=== PATIENT | male | born 1975 | race Hispanic/Latino ===

== ENCOUNTER 2017-06-20 15:54 | Emergency (ER) | payer SELFPAY ==
[~2017-06-20] VITALS: Ht 170.2 cm; Wt 65.0 kg
[~2017-06-20 15:54] MED LIST: ALBUTEROL S2.5 MG/.5 IN; BENADRYL 50MG C50 MG PO; CEPHALEXIN500 MG PO; MEDDOSEPAK PO; NO; PROAIR HFA IN; ULTRAM50 MG PO; VENTOLIN HFA IN; ZPAK PO
[2017-06-20 17:43] LABS: INFLUENZA A POSITIVE (NONE DETECT); INFLUENZA B NONE DETECTED (NONE DETECT)
[2017-06-20 17:54] VITALS: BP 125/69
[2017-06-20] MEDS ORDERED: TAM75CAP PO (18:28)
== END 2017-06-20 19:05 | disposition home or self-care (01) | DRG 153 ==
LOC: ED 15:54
PROVIDERS: Emergency Medicine
DX: J11.1 Influenza due to unidentified influenza virus with other respiratory manifestations (principal); F17.210 Nicotine dependence, cigarettes, uncomplicated; R05 Cough; R09.81 Nasal congestion; R50.9 Fever, unspecified

== ENCOUNTER 2022-06-01 06:51 | Emergency (ER) | payer OTHER ==
[~2022-06-01] VITALS: Ht 170.2 cm; Wt 79.8 kg
[~2022-06-01 06:51] MED LIST changes: +TAM75CAP PO
[2022-06-01] MEDS ORDERED: CEPHALEXIN500 M1 PO (07:12)
[2022-06-01] MEDS ORDERED: BACTRIM DS1 TAB PO (07:12)
[2022-06-01 07:53] VITALS: BP 116/59
== END 2022-06-01 07:54 | disposition home or self-care (01) | DRG 603 ==
LOC: ED 06:51
DX: L03.116 Cellulitis of left lower limb (principal)

== ENCOUNTER 2022-12-07 11:26 | Emergency (ER) | payer OTHER ==
[~2022-12-07] VITALS: Ht 167.6 cm; Wt 54.5 kg
[~2022-12-07 11:26] MED LIST changes: +BACTRIM DS1 TAB PO; +CEPHALEXIN500 M1 PO
[2022-12-07 11:35] VITALS: BP 116/70
[2022-12-07 11:46] VITALS: BP 121/76
[2022-12-07] MEDS ORDERED: BACTRIM DS1 TAB PO (11:58)
[2022-12-07] MEDS ORDERED: OMNICEF300 M1 PO (11:58)
[2022-12-07 12:00] VITALS: BP 112/66
[2022-12-07 12:02] VITALS: BP 112/66
== END 2022-12-07 12:06 | disposition home or self-care (01) | DRG 603 ==
LOC: ED 11:26
PROC: 0H9EXZZ Drainage of Left Lower Arm Skin, External Approach (ICD-10-PCS; principal; 2022-12-07)
DX: L02.414 Cutaneous abscess of left upper limb (principal); J45.909 Unspecified asthma, uncomplicated; F17.210 Nicotine dependence, cigarettes, uncomplicated